=== PATIENT | male | born 1950 | race African-American/Black ===

== ENCOUNTER → 2023-12-04 10:59 | Outpatient (REF) | payer OTHER, SELFPAY ==
[2023-12-04 12:52] LABS: % Basophils 0.4 % (0-2); % Eosinophils 4.6 % (0-6); % Immature Granulocytes 0.2 % (0-0.5); % Lymphocytes 33.2 % (20.5-51.1); % Monocytes 10.3 % (1.7-9.3); % Neutrophils 51.3 % (42.2-75.2); Absolute Eosinophils 0.2 10^3/uL (0-0.7); Absolute Lymphocytes 1.5 10^3/uL (1.2-3.4); Absolute Monocytes 0.5 10^3/uL (0.1-0.6); Absolute Neutrophils 2.4 10^3/uL (1.4-6.5); Hematocrit 38.1 % (39.0-52.0); Hemoglobin 12.7 g/dL (13.0-18.0); Mean Corp Hgb Conc. 33.3 g/dL (33.0-37.0); Mean Corpuscular Hgb 25.6 pg (27.0-31.0); Mean Corpuscular Volume 76.8 fL (80.0-94.0); Mean Platelet Volume 10.8 fL (7.4-10.4); Nucleated Red Blood Cells % 0 % (-); Platelet Count 208 10^3/uL (130-400); Red Blood Cell Count 4.96 10^6/uL (4.70-6.10); Red Cell Dist. Width 17.2 % (11.5-14.5); White Blood Cell Count 4.6 10^3/uL (4.8-10.8)
[2023-12-04 13:36] LABS: ALT (SGPT) 18 U/L (0-50); AST (SGOT) 27 U/L (17-59); Albumin 4.2 g/dl (3.5-5.0); Alkaline Phosphatase 75 U/L (38-126); Blood Urea Nitrogen 16 mg/dl (9-20); Calcium 9.2 mg/dl (8.4-10.2); Carbon Dioxide 29 mmol/L (22-30); Chloride 104 mmol/L (98-107); Glucose 95 mg/dl (70-99); LDH 219 U/L (120-246); Potassium 4.9 mmol/L (3.5-5.1); Sodium 137 mmol/L (135-145); Total Bilirubin 0.5 mg/dl (0.2-1.3); Total Protein 7.4 g/dl (6.3-8.2); eGFR > 60.00
== END ==
LOC: HWLAB 10:59
PROVIDERS: ATTENDING PHYSICIAN Internal Medicine Hematology & Oncology; FAMILY PHYSICIAN Student in an Organized Health Care Education/Training Program
DX: C83.31 Diffuse large B-cell lymphoma, lymph nodes of head, face, and neck (principal)
CPT/HCPCS: 36415; 80053; 83615; 85025

== ENCOUNTER → 2024-05-27 13:13 | Outpatient (REF) | payer OTHER, SELFPAY ==
[2024-05-27 15:49] LABS: % Basophils 0.7 % (0-2); % Eosinophils 5.8 % (0-6); % Immature Granulocytes 0.2 % (0-0.5); % Lymphocytes 36.8 % (20.5-51.1); % Monocytes 9.6 % (1.7-9.3); % Neutrophils 46.9 % (42.2-75.2); Absolute Eosinophils 0.3 10^3/uL (0-0.7); Absolute Lymphocytes 1.7 10^3/uL (1.2-3.4); Absolute Monocytes 0.4 10^3/uL (0.1-0.6); Absolute Neutrophils 2.1 10^3/uL (1.4-6.5); Hematocrit 40.6 % (39.0-52.0); Hemoglobin 13.5 g/dL (13.0-18.0); Mean Corp Hgb Conc. 33.3 g/dL (33.0-37.0); Mean Corpuscular Hgb 27.3 pg (27.0-31.0); Mean Platelet Volume 11.2 fL (7.4-10.4); Nucleated Red Blood Cells % 0 % (-); Platelet Count 191 10^3/uL (130-400); Red Blood Cell Count 4.95 10^6/uL (4.70-6.10); Red Cell Dist. Width 15.2 % (11.5-14.5); White Blood Cell Count 4.5 10^3/uL (4.8-10.8)
[2024-05-27 16:01] LABS: ALT (SGPT) 23 U/L (0-50); AST (SGOT) 35 U/L (17-59); Albumin 4.6 g/dl (3.5-5.0); Alkaline Phosphatase 54 U/L (38-126); Blood Urea Nitrogen 15 mg/dl (9-20); Calcium 9.9 mg/dl (8.4-10.2); Carbon Dioxide 29 mmol/L (22-30); Chloride 100 mmol/L (98-107); Glucose 89 mg/dl (70-99); LDH 213 U/L (120-246); Potassium 4.8 mmol/L (3.5-5.1); Sodium 140 mmol/L (135-145); Total Bilirubin 0.4 mg/dl (0.2-1.3); Total Protein 7.6 g/dl (6.3-8.2); eGFR > 60.00
== END ==
LOC: HWLAB 13:13
PROVIDERS: ATTENDING PHYSICIAN Internal Medicine Hematology & Oncology; FAMILY PHYSICIAN Student in an Organized Health Care Education/Training Program
DX: C83.31 Diffuse large B-cell lymphoma, lymph nodes of head, face, and neck (principal)
CPT/HCPCS: 36415; 80053; 83615; 85025

== ENCOUNTER → 2024-06-20 11:50 | Outpatient (REF) | payer OTHER, SELFPAY | LOC: HWRAD 11:50 | PROVIDERS: ATTENDING PHYSICIAN Internal Medicine; FAMILY PHYSICIAN Student in an Organized Health Care Education/Training Program | DX: M79.642 Pain in left hand (principal); M79.641 Pain in right hand | CPT/HCPCS: 73130 ==

== ENCOUNTER → 2024-06-23 09:35 | Outpatient (REF) | payer OTHER, SELFPAY ==
[2024-06-23 11:55] LABS: % Basophils 0.4 % (0-2); % Eosinophils 2.5 % (0-6); % Immature Granulocytes 0.2 % (0-0.5); % Monocytes 9.8 % (1.7-9.3); % Neutrophils 62.1 % (42.2-75.2); Absolute Eosinophils 0.1 10^3/uL (0-0.7); Absolute Lymphocytes 1.4 10^3/uL (1.2-3.4); Absolute Monocytes 0.6 10^3/uL (0.1-0.6); Absolute Neutrophils 3.6 10^3/uL (1.4-6.5); Hematocrit 38.6 % (39.0-52.0); Hemoglobin 12.7 g/dL (13.0-18.0); Mean Corp Hgb Conc. 32.9 g/dL (33.0-37.0); Mean Corpuscular Hgb 27.3 pg (27.0-31.0); Mean Platelet Volume 11.1 fL (7.4-10.4); Nucleated Red Blood Cells % 0 % (-); Platelet Count 203 10^3/uL (130-400); Red Blood Cell Count 4.65 10^6/uL (4.70-6.10); Red Cell Dist. Width 15.3 % (11.5-14.5); White Blood Cell Count 5.7 10^3/uL (4.8-10.8)
[2024-06-23 12:09] LABS: ALT (SGPT) 22 U/L (0-50); Albumin 4.3 g/dl (3.5-5.0); Alkaline Phosphatase 59 U/L (38-126); Blood Urea Nitrogen 20 mg/dl (9-20); Calcium 9.5 mg/dl (8.4-10.2); Carbon Dioxide 28 mmol/L (22-30); Chloride 103 mmol/L (98-107); Potassium 4.7 mmol/L (3.5-5.1); Sodium 140 mmol/L (135-145); Total Bilirubin 0.4 mg/dl (0.2-1.3); Total Protein 7.3 g/dl (6.3-8.2); Uric Acid 6.3 mg/dl (3.5-8.5); eGFR > 60.00
[2024-06-23 12:12] LABS: C-Reactive Protein < 5.00 mg/L (0.0-10.00)
[2024-06-23 12:18] LABS: AST (SGOT) 29 U/L (17-59); Glucose 114 mg/dl (70-99)
[2024-06-23 12:19] LABS: Erythrocyte Sed Rate 24 mm/hour (0-20)
[2024-06-23 13:19] LABS: Folate 12.3 ng/ml (2.76-20); Vitamin B12 778 pg/ml (239-931)
[2024-06-23 14:17] LABS: Rheumatoid Agglutinin Less Than 10 IU (<10 IU)
[2024-06-23 18:23] LABS: Hepatitis B Surface Antigen Negative (Negative)
[2024-06-23 18:41] LABS: Hepatitis B Core Ab, Total Negative (Negative); Hepatitis C Antibody Negative (Negative)
[2024-06-24 22:34] LABS: CCP Antibody IgG/IgA 8 Units (0-19)
[2024-06-24 22:58] LABS: ANA, IgG Reflex to HEp-2 Detected (None Detected)
[2024-06-25 06:08] LABS: Angiotensin-1-converting Enzym 19 U/L (16-85)
[2024-06-25 09:10] LABS: Quantiferon Mitogen minus NIL 9.98 IU/mL; Quantiferon NIL 0.02 IU/mL; Quantiferon TB Gold Plus Negative (Negative)
[2024-06-25 11:37] LABS: ANA, HEp-2, IgG Detected (<1:80)
[2024-06-25 23:00] LABS: Alpha 1 Globulin 0.27 g/dL (0.19-0.46); Free Kappa Light Chains,Quant 24.54 mg/L (3.30-19.40); Free Lambda Light Chains,Quant 18.09 mg/L (5.71-26.30); IgA 462 mg/dL (68-408); IgG 1171 mg/dL (768-1632); IgM 220 mg/dL (35-263); Immunofixation Electrophoresis IFE Done; Kappa/Lambda Fr Light Ratio 1.36 (0.26-1.65); Total Protein-Electrophoresis 7.2 g/dL (6.3-8.2)
[2024-06-26 07:03] LABS: ANA Pattern Speckled
== END ==
LOC: HWLAB 09:35
PROVIDERS: ATTENDING PHYSICIAN Internal Medicine; FAMILY PHYSICIAN Student in an Organized Health Care Education/Training Program
DX: K75.9 Inflammatory liver disease, unspecified (principal); Z51.81 Encounter for therapeutic drug level monitoring; Z22.7 Latent tuberculosis; M10.9 Gout, unspecified; M25.50 Pain in unspecified joint; M06.9 Rheumatoid arthritis, unspecified; M35.9 Systemic involvement of connective tissue, unspecified; E07.9 Disorder of thyroid, unspecified; G62.9 Polyneuropathy, unspecified; D47.2 Monoclonal gammopathy; M32.9 Systemic lupus erythematosus, unspecified; D86.9 Sarcoidosis, unspecified
CPT/HCPCS: 36415; 80053; 82164; 82607; 82746; 82784; 83521; 84155; 84165; 84443; 84550; 85025; 85652; 86038; 86039; 86140; 86200; 86334; 86430; 86480; 86704; 86803; 87340

== ENCOUNTER 2024-07-21 07:52 | Day surgery (SDC) | payer OTHER, SELFPAY ==
[2024-07-21] VITALS (17 sets, daily range): BP systolic 117–162; BP diastolic 68–108; BMI 39.7
--- NOTE | 2024-07-21 10:10 | ITS.CL.PACE ---
[facility] - Pacemaker Implant
Pacemaker Implant
Procedure Report:
PACEMAKER IMPLANT REPORT
Primary Care Provider: Dr Toshia Casarez
Date of Procedure: 07/21/24
Procedure:
Implantation of dual-chamber permanent pacemaker utilizing the left bundle branch for conduction system pacing
Indication/Diagnosis:
Non-reversible symptomatic bradycardia due to sinus node dysfunction as well as second atrioventricular block.
After informed consent was obtained, 'time out' was called and confirmed, the patient was prepped and draped in a sterile fashion. Lidocaine with epi was used for local anesthesia. Central venous access was obtained via subclavian venipuncture. An
incision was made along the left chest and a pre-pectoral pocket was formed. Using a Seldinger technique and peel-away sheaths, the pacing leads were placed under fluoroscopic guidance.
Fluoroscopy was used to determine likely anatomic site for left bundle branch pacing. The ROI²tronic C315 sheath was used to deliver the Medtronic 3830 Selectsecure pacing lead with the helix exposed just exposed from the sheath tip during continuous
monitoring when pacemapping the septum during gentle clockwise rotation to obtain a paced QRS morphology of a W pattern in lead V1. Once the suspected optimal site was identified, lead deployment was performed with several rapid rotations as paced
QRS morphology was intermittently monitored until a paced QRS complex in lead V1 demonstrated development of an R wave [ ] (qR or rSR).
Unipolar pacing impedance dropped by approximately 100 ohms suggesting it had reached the left ventricular subendocardial.
Stable VEgm injury current is present throughout final lead position including at end of case, suggesting there was no perforation through the septum into the LV cavity.
Unipolar pacing impedance is 1000 Ohms
Unipolar pacing threshold is stable at 1.5 V @ 0.4ms.
Final conduction system paced QRS complex duration is 120 ms
LVAT is 65 ms and peak V5 -> peak V1 timing is 51 ms
Right atrial lead was placed at the RAA.
Once testing (see below) showed adequate and stable function, the leads were secured using the suture sleeves. The pocket was liberally irrigated with antibiotic solution. The leads were connected to the generator header and the leads and
generator were placed within the pocket. Fluoroscopy confirmed stable lead position. The pocket was closed in the typical fashion.
Fluoroscopy was used to guide lead placement.
IMPLANTS:
Medtronic [id number], SN: [id number], Left Pectoral
RA: Medtronic 5076-45, SN: [id number], RAA
Left Bundle: Medtronic 3830 , SN:[id number], Interventricular septum at LBB
DEVICE TESTING:
Sensing: RA 2.6 mV, RV 8 mV
Capture: RA 0.75 V@0.4ms, RV 1.375 V@0.4ms
Ohms: RA 560, RV 930
FINAL PROGRAMMING
Kirit Pacing: DDDR 50-130 ppm
COMPLICATIONS:
None
CONCLUSIONS:
1: Successful implant of dual chamber permanent pacemaker utilizing Left Bundle Branch conduction system capture for ventricular resynchronization pacing.
RECOMMENDATIONS:
1. Post-op care (tele, CXR, IV abx)
2. In-Office wound check in 5-7 days
Copy to: Dr Toshia Casarez
--- NOTE | 2024-07-21 12:33 | PTCARENOTE ---
Pt taken to xray via stretcher with cardiac cath rn and RN.
--- NOTE | 2024-07-21 12:47 | PTCARENOTE ---
Pt returned from xray via [facility] with project management it specialist and RN.
[2024-07-21] MEDS: NORVASC 5 MG PO (13:15)
[2024-07-21] MEDS: ANCEF 5 IV (14:58)
--- NOTE | 2024-07-21 15:35 | W.PN.UPDATE ---
Update Note
Progress Note Update
Pt seen post PPM implant. Left ACW w/aquacel dressing/pressure dressing intact, no ht/bleeding. To remove pressure dressing in AM. Activity limitations reviewed w/pt, all questions answered. Post CXR w/stable lead position, no pneumothorax. Incision
check in 1 week as scheduled at [facility]. Home later today if device site/tele remain stable.
== END 2024-07-21 15:35 | disposition home or self-care (01) ==
LOC: CATH 07:52
PROVIDERS: ATTENDING PHYSICIAN Internal Medicine Cardiovascular Disease; FAMILY PHYSICIAN Student in an Organized Health Care Education/Training Program
DX: I49.5 Sick sinus syndrome (principal); I10 Essential (primary) hypertension; E78.5 Hyperlipidemia, unspecified; I44.1 Atrioventricular block, second degree; K21.9 Gastro-esophageal reflux disease without esophagitis; G47.33 Obstructive sleep apnea (adult) (pediatric); K22.2 Esophageal obstruction; R73.03 Prediabetes; Z87.891 Personal history of nicotine dependence; Z79.82 Long term (current) use of aspirin; Z79.899 Other long term (current) drug therapy
CPT/HCPCS: 33208; 71045; 93005; C1769; C1785; C1887; C1892; C1898; Q9967

== ENCOUNTER → 2024-10-14 11:57 | Outpatient (REF) | payer OTHER, SELFPAY ==
[2024-10-14 15:16] LABS: % Basophils 0.5 % (0-2); % Eosinophils 5.6 % (0-6); % Lymphocytes 29.1 % (20.5-51.1); % Monocytes 10.4 % (1.7-9.3); % Neutrophils 54.4 % (42.2-75.2); Absolute Eosinophils 0.2 10^3/uL (0-0.7); Absolute Lymphocytes 1.1 10^3/uL (1.2-3.4); Absolute Monocytes 0.4 10^3/uL (0.1-0.6); Hematocrit 38.7 % (39.0-52.0); Hemoglobin 12.5 g/dL (13.0-18.0); Mean Corp Hgb Conc. 32.3 g/dL (33.0-37.0); Mean Corpuscular Hgb 27.2 pg (27.0-31.0); Mean Corpuscular Volume 84.3 fL (80.0-94.0); Mean Platelet Volume 11.3 fL (7.4-10.4); Nucleated Red Blood Cells % 0 % (-); Platelet Count 192 10^3/uL (130-400); Red Blood Cell Count 4.59 10^6/uL (4.70-6.10); Red Cell Dist. Width 14.5 % (11.5-14.5); White Blood Cell Count 3.7 10^3/uL (4.8-10.8)
[2024-10-14 15:22] LABS: ALT (SGPT) 20 U/L (0-50); AST (SGOT) 27 U/L (17-59); Albumin 4.4 g/dl (3.5-5.0); Alkaline Phosphatase 68 U/L (38-126); Blood Urea Nitrogen 15 mg/dl (9-20); Calcium 9.5 mg/dl (8.4-10.2); Carbon Dioxide 28 mmol/L (22-30); Chloride 101 mmol/L (98-107); Glucose 112 mg/dl (70-99); HDL Cholesterol 48 mg/dl; LDL Cholesterol, Calculated 80 mg/dl; Potassium 4.9 mmol/L (3.5-5.1); Sodium 138 mmol/L (135-145); Total Bilirubin 0.7 mg/dl (0.2-1.3); Total Cholesterol 141 mg/dl (50-199); Total Protein 7.1 g/dl (6.3-8.2); Triglyceride 65 mg/dl (10-149); Very Low Density Lipoprotein 13 mg/dl (0-30); eGFR > 60.00
[2024-10-14 15:52] LABS: PSA, Total - Screen 1.46 ng/ml (0.0-4.0); TSH Reflex To Free T4 0.39 uIU/ml (0.47-4.68)
[2024-10-14 16:00] LABS: HIV Combo Negative (Negative)
[2024-10-14 16:11] LABS: Vitamin B12 446 pg/ml (239-931)
[2024-10-14 16:19] LABS: Free T4 1.07 ng/dl (0.78-2.19)
== END ==
LOC: HWLAB 11:57
PROVIDERS: ATTENDING PHYSICIAN Student in an Organized Health Care Education/Training Program
DX: Z87.438 Personal history of other diseases of male genital organs (principal); E78.49 Other hyperlipidemia; Z85.71 Personal history of Hodgkin lymphoma; Z00.00 Encounter for general adult medical examination without abnormal findings; G62.9 Polyneuropathy, unspecified; Z11.3 Encounter for screening for infections with a predominantly sexual mode of transmission; D50.9 Iron deficiency anemia, unspecified
CPT/HCPCS: 36415; 80053; 80061; 82607; 82728; 84155; 84165; 84439; 84443; 85025; 86618; 86780; 87389; 87491; 87591; G0103

== ENCOUNTER → 2024-10-21 11:20 | Outpatient (REF) | payer OTHER, SELFPAY ==
[2024-10-21 15:47] LABS: % Basophils 0.8 % (0-2); % Eosinophils 4.6 % (0-6); % Lymphocytes 22.5 % (20.5-51.1); % Monocytes 9.6 % (1.7-9.3); % Neutrophils 62.5 % (42.2-75.2); Absolute Eosinophils 0.2 10^3/uL (0-0.7); Absolute Lymphocytes 0.9 10^3/uL (1.2-3.4); Absolute Monocytes 0.4 10^3/uL (0.1-0.6); Absolute Neutrophils 2.5 10^3/uL (1.4-6.5); Hematocrit 39.1 % (39.0-52.0); Hemoglobin 12.8 g/dL (13.0-18.0); Mean Corp Hgb Conc. 32.7 g/dL (33.0-37.0); Mean Corpuscular Hgb 27.1 pg (27.0-31.0); Mean Corpuscular Volume 82.7 fL (80.0-94.0); Mean Platelet Volume 11.2 fL (7.4-10.4); Nucleated Red Blood Cells % 0 % (-); Platelet Count 190 10^3/uL (130-400); Red Blood Cell Count 4.73 10^6/uL (4.70-6.10); Red Cell Dist. Width 14.3 % (11.5-14.5)
[2024-10-21 16:23] LABS: TSH Reflex To Free T4 1.06 uIU/ml (0.47-4.68)
[2024-10-22 10:59] LABS: Syphilis/T. pallidum Ab Reflex Positive (Negative)
[2024-10-22 12:08] LABS: RPR, Progressive Reactive (NonReactive)
[2024-10-22 12:10] LABS: RPR Titer 1:16 Dils
[2024-10-24 05:00] LABS: FTA-ABS/T. pallidum, IgG Serum Reactive (Non Reactive)
== END ==
LOC: HWLAB 11:20
PROVIDERS: ATTENDING PHYSICIAN Student in an Organized Health Care Education/Training Program
DX: A53.0 Latent syphilis, unspecified as early or late (principal); D64.9 Anemia, unspecified; R79.89 Other specified abnormal findings of blood chemistry
CPT/HCPCS: 36415; 84443; 85025; 86592; 86593; 86780

== ENCOUNTER → 2024-12-22 10:20 | Outpatient (REF) | payer OTHER, SELFPAY ==
[2024-12-22 10:41] LABS: % Basophils 0.5 % (0-2); % Immature Granulocytes 0.2 % (0-0.5); % Lymphocytes 33.4 % (20.5-51.1); % Monocytes 9.5 % (1.7-9.3); % Neutrophils 49.4 % (42.2-75.2); Absolute Eosinophils 0.3 10^3/uL (0-0.7); Absolute Lymphocytes 1.3 10^3/uL (1.2-3.4); Absolute Monocytes 0.4 10^3/uL (0.1-0.6); Hematocrit 39.6 % (39.0-52.0); Hemoglobin 13.1 g/dL (13.0-18.0); Mean Corp Hgb Conc. 33.1 g/dL (33.0-37.0); Mean Corpuscular Hgb 26.9 pg (27.0-31.0); Mean Corpuscular Volume 81.3 fL (80.0-94.0); Mean Platelet Volume 10.2 fL (7.4-10.4); Nucleated Red Blood Cells % 0 % (-); Platelet Count 224 10^3/uL (130-400); Red Blood Cell Count 4.87 10^6/uL (4.70-6.10); Red Cell Dist. Width 14.6 % (11.5-14.5)
[2024-12-22 10:51] VITALS: BP 140/94; BP_SYST 84
[2024-12-22 10:54] LABS: INR 1.02; PT 13.7 Sec (11.4-14.6)
[2024-12-22 12:45] VITALS: BP 139/106; BP_SYST 72
[2024-12-22 14:32] LABS: CSF Clarity Clear; CSF Color Colorless; CSF Tube # 4; Red Cell Count/CSF 39 mm^3; White Cell Count/CSF 1 mm^3 (0-5)
[2024-12-22 14:53] LABS: Spinal Fluid Glucose 59 mg/dl (40-70); Spinal Fluid Protein 76 mg/dl (12-60)
== END ==
LOC: RADI 10:20
PROVIDERS: ATTENDING PHYSICIAN Student in an Organized Health Care Education/Training Program; FAMILY PHYSICIAN Student in an Organized Health Care Education/Training Program; REFERRING PHYSICIAN Physician Assistant
DX: A52.3 Neurosyphilis, unspecified (principal); D68.8 Other specified coagulation defects
CPT/HCPCS: 36415; 62328; 82945; 84157; 85025; 85610; 86592; 87015; 87070; 87205; 89051

== ENCOUNTER → 2024-12-25 09:59 | Outpatient (REF) | payer OTHER, SELFPAY ==
[2024-12-25 13:04] LABS: Hepatitis B Surface Antigen Negative (Negative)
[2024-12-25 13:21] LABS: Hepatitis A Antibody, Total Positive (Negative); Hepatitis B Core Ab, Total Negative (Negative); Hepatitis B Surface Antibody Negative
== END ==
LOC: REG 09:59
PROVIDERS: ATTENDING PHYSICIAN Student in an Organized Health Care Education/Training Program; FAMILY PHYSICIAN Student in an Organized Health Care Education/Training Program
DX: Z72.52 High risk homosexual behavior (principal)
CPT/HCPCS: 36415; 86704; 86706; 86708; 87340

== ENCOUNTER → 2024-12-31 09:11 | Outpatient (REF) | payer OTHER, SELFPAY ==
[2024-12-31 09:24] VITALS: BP 125/85; BP_SYST 87
== END ==
LOC: RADI 09:11
PROVIDERS: ATTENDING PHYSICIAN Student in an Organized Health Care Education/Training Program; FAMILY PHYSICIAN Student in an Organized Health Care Education/Training Program
DX: A52.1 Symptomatic neurosyphilis (principal)
CPT/HCPCS: 36573; C1751